=== PATIENT | male | born 1975 | race Caucasian/White ===

== ENCOUNTER → 2022-03-19 | Day surgery (SDC) | payer OTHER ==
[~2022-03-19] VITALS: Ht 180.3 cm; Wt 127.0 kg
[~2022-03-19] MED LIST: ASPIRIN EC81 MG PO; IBUPROFEN800 MG PO
[2022-03-19 06:54] LABS: MCH 29.8 pg (25.0-31.0); MCHC 33.3 g/dL (32.0-36.0); MCV 89.5 fL (78.0-100.0); MPV 10.5 fL (6.0-9.5); RBC 5.03 M/uL (4.70-6.00); RDW 13.7 % (11.5-14.0); WBC 6.9 K/uL (4.0-10.5)
[2022-03-19 08:10] LABS: ALBUMIN 3.3 g/dL (3.4-5.0); BILIRUBIN - TOTAL 0.4 mg/dL (0.2-1.0); BUN/CREAT RATIO (CALC) 16.5 RATIO; CREATININE 0.79 mg/dL (0.67-1.17); GLOBULIN (CALCULATION) 3.7 g/dL; POTASSIUM 4.7 mmol/L (3.5-5.1)
== END | disposition home or self-care (01) ==
LOC: FAS 05:58
PROVIDERS: Orthopaedic Surgery
DX: S83.511A Sprain of anterior cruciate ligament of right knee, initial encounter (principal); S83.281A Other tear of lateral meniscus, current injury, right knee, initial encounter; X58.XXXA Exposure to other specified factors, initial encounter
CPT/HCPCS: 36415; 71045; 80053; 93005; C1713; C1762; J0690; J0735; J1100; J1170; J1885; J2250; J2405; J2704; J2795; J3010; J7120